=== PATIENT | male | born 1955 | race Caucasian/White ===

== ENCOUNTER 2017-08-28 06:10 | Day surgery (SDC) | payer OTHER ==
[~2017-08-28] VITALS: Ht 188 cm; Wt 82.7 kg
[2017-08-28] MEDS ORDERED: BENZOCAINE 20% 50 MCG/SPRAY 57 GM TP ONE (06:11)
[2017-08-28] MEDS ORDERED: ALBUTEROL SULFATE 2.5 MG/0.5 ML NEB SOLUTION NEB ONE (06:11)
[2017-08-28] MEDS ORDERED: LIDOCAINE HCL 4% 50 ML SOLUTION TP ONE (06:11)
[2017-08-28] MEDS ORDERED: LIDOCAINE HCL 2% 30 ML JELLY TP ONE (06:11)
[2017-08-28] MEDS ORDERED: SODIUM CHLORIDE 0.9% 1,000 ML IV ONE ×2 (06:45→07:00)
[2017-08-28] MEDS ORDERED: MIDAZOLAM HCL 2 MG/2 ML VIAL ONE (08:03)
[2017-08-28] MEDS ORDERED: FentaNYL CITRATE-PF 100 MCG/2 ML VIAL ONE (08:04)
[2017-08-28] MEDS ORDERED: MethylPREDNISolone SOD SUCC 125 MG/2 ML VIAL IVP ONE (09:00)
[2017-08-28] MEDS ORDERED: MethylPREDNISolone SOD SUCC 125 MG/2 ML VIAL ONE (09:12)
[2017-08-28] MEDS ORDERED: OXYGEN THERAPY IH SCH (20:00)
== END 2017-08-28 10:25 | disposition home or self-care (01) ==
LOC: SURGERY 06:10
PROVIDERS: ATTEND Internal Medicine Critical Care Medicine
DX: J38.4 Edema of larynx (principal); B37.0 Candidal stomatitis; Z85.828 Personal history of other malignant neoplasm of skin
CPT/HCPCS: 31623; 31624; 71045; 87015; 87070; 87077; 87186; 87205; 87220; 88108; 88312; J2250; J2930; J3010; J7030